=== PATIENT | female | born 1985 | race Caucasian/White ===

== ENCOUNTER 2016-10-11 19:05 | Emergency (ER) | payer MEDICAID ==
[2016-10-11] MEDS ORDERED: ACETAMINOPHEN 325 MG TAB ONE (20:35)
== END 2016-10-11 20:40 | disposition home or self-care (01) ==
LOC: ER 19:05
DX: H66.003 Acute suppurative otitis media without spontaneous rupture of ear drum, bilateral (principal); J03.90 Acute tonsillitis, unspecified; F17.200 Nicotine dependence, unspecified, uncomplicated
CPT/HCPCS: 87070; 87804; 87880